=== PATIENT | female | born 1995 | race Caucasian/White ===

== ENCOUNTER 2023-09-08 18:43 | Emergency (ER) | payer MEDICAID ==
[~2023-09-08] VITALS: Ht 157.5 cm; Wt 65.0 kg
[~2023-09-08 18:43] MED LIST: OMEP20CA4 PO; ONDA8TAB6 PO
[2023-09-08 18:49] VITALS: BP 143/88; PULSE 104; RESP 20; TEMP 98.6; O2SAT 99
== END 2023-09-08 19:54 | disposition home or self-care (01) ==
LOC: ER 18:45
DX: F11.20 Opioid dependence, uncomplicated (principal); F15.90 Other stimulant use, unspecified, uncomplicated; Z90.49 Acquired absence of other specified parts of digestive tract; Z88.2 Allergy status to sulfonamides; Z79.899 Other long term (current) drug therapy
CPT/HCPCS: 93005; 99283